=== PATIENT | female | born 1950 | race African-American/Black ===

== ENCOUNTER 2017-12-11 23:00 | Emergency (ER) | payer MEDICARE, OTHER ==
[2017-12-12] MEDS ORDERED: PREDNISONE 20 MG TABLET PO ONE (01:22)
--- NOTE | 2017-12-12 01:27 | ER Document Report ---
ED General - General Chief Complaint: Breathing Difficulty Stated Complaint: DIFFICULTY BREATHING Time Seen by Provider: 12/12/17 01:09 Notes: Patient is a 67 year old female with a past medical history of COPD who presents with 24 hours of shortness of breath. Patient reports that her symptoms have much improved at this time after using her albuterol inhaler in triage. She reports that she has had a dry, nonproductive cough as well as intermittent sensation of choking with coughing. She denies a history of similar exacerbations in the past. She has not seen a primary doctor regarding today's concerns. She denies any fever, headache, neck pain, chest pain or syncope. Multiple sick contacts with viral upper respiratory infections the patient believes that she has the same symptoms. TRAVEL OUTSIDE OF THE [place] IN LAST 30 DAYS: No - Related Data Allergies/Adverse Reactions: No Known Allergies Allergy (Unverified 04/17/11 09:30) Past Medical History - General Information source: Patient - Social History Smoking Status: Former Smoker Chew tobacco use (# tins/day): No Frequency of alcohol use: Occasional Drug Abuse: None Lives with: Family Family History: Reviewed & Not Pertinent Patient has suicidal ideation: No Patient has homicidal ideation: No Renal/ Medical History: Denies: Hx Peritoneal Dialysis Review of Systems - Review of Systems Notes: Constitutional: Negative for fever. HENT: Negative for sore throat. Eyes: Negative for visual changes. Cardiovascular: Negative for chest pain. Respiratory: Positive for shortness of breath. Gastrointestinal: Negative for abdominal pain, vomiting or diarrhea. Genitourinary: Negative for dysuria. Musculoskeletal: Negative for back pain. Skin: Negative for rash. Neurological: Negative for headaches, weakness or numbness. 10 point ROS negative except as marked above and in HPI. Physical Exam - Vital signs Vitals: Temp Pulse Resp BP Pulse Ox 98.1 F 91 22 H 173/72 H 97 12/11/17 23:01 12/11/17 23:01 12/11/17 23:01 12/11/17 23:01 12/11/17 23:01 Interpretation: Hypertensive Notes: PHYSICAL EXAMINATION: GENERAL: Well-appearing, well-nourished and in no acute distress. HEAD: Atraumatic, normocephalic. EYES: Pupils equal round and reactive to light, extraocular movements intact, sclera anicteric, conjunctiva are normal. ENT: nares patent, oropharynx clear without exudates. Moist mucous membranes. NECK: Normal range of motion, supple without lymphadenopathy LUNGS: Breath sounds clear to auscultation bilaterally and equal. No wheezes rales or rhonchi. HEART: Regular rate and rhythm without murmurs ABDOMEN: Soft, nontender, normoactive bowel sounds. No guarding, no rebound. No masses appreciated. EXTREMITIES: Normal range of motion, no pitting or edema. No cyanosis. NEUROLOGICAL: No focal neurological deficits. Moves all extremities spontaneously and on command. PSYCH: Normal mood, normal affect. SKIN: Warm, Dry, normal turgor, no rashes or lesions noted. Course - Re-evaluation Re-evalutation: 12/12/17 01:27 Patient presents with a mild exacerbation of their baseline COPD. Minimal wheezing at time of presentation but vitals do not show significant hypoxemia or tachypnea. No retractions. Patient gave herself her inhaler and had resolution of any wheezing that was noted. Chest x-ray without evidence of an acute pneumonia.Patient able to ambulate without any respiratory distress. Based on patient's overall reassuring assessment, I believe they are stable for outpatient management with steroids. Patient has nebulizers at home. I do not suspect an acute alternative pathology at this time based on history and exam including acute pulmonary embolus, ACS, pneumothorax, or aortic dissection. At this time will discharge with return precautions and follow-up recommendations. Verbal discharge instructions given a the bedside and opportunity for questions given. Medication warnings reviewed. Patient is in agreement with this plan and has verbalized understanding of return precautions and the need for primary care follow-up in the next 24-72 hours. - Vital Signs Vital signs: Temp Pulse Resp BP Pulse Ox 98.1 F 91 22 H 173/72 H 97 12/11/17 23:01 12/11/17 23:01 12/11/17 23:01 12/11/17 23:01 12/11/17 23:01 - Diagnostic Test Radiology reviewed: Image reviewed, Reports reviewed Radiology results interpreted by me: 12/12/17 02:07 Chest x-ray: No acute infiltrate or pneumothorax Discharge - Discharge Clinical Impression: COPD exacerbation Condition: Good Disposition: HOME, SELF-CARE Additional Instructions: You were seen for a COPD exacerbation. Your symptoms improved with treatment here in the emergency department. However, it is very important that you return to the emergency department immediately if you began to have worsening difficulty breathing that does not respond to your normal home nebulizers. You are also being sent home on a five-day course of steroids that you should start taking tomorrow. Please also follow closely with your primary care physician. You should return to emergency department if you develop fever greater than 101, persistent cough, persistent vomiting, pass out, or any other symptoms that are concerning to you. Prescriptions: Prednisone [Deltasone 20 mg Tablet] 3 tab PO DAILY 5 Days tablet Forms: Return to Work
--- NOTE | 2017-12-12 01:45 | RADIOLOGY REPORT (SQ) ---
EXAM DESCRIPTION: CHEST SINGLE VIEW CLINICAL HISTORY: 67 years Female, shortness of breath COMPARISON: 04/17/2011 NUMBER OF VIEWS/TECHNIQUE: 1/AP LIMITATIONS: None. FINDINGS: Moderate emphysematous increased lung volume, clear parenchyma, normal cardiac silhouette, atherosclerosis, and intact bony thorax. IMPRESSION: No acute cardiopulmonary findings.
[2017-12-12 02:26] VITALS: BP 165/70
== END 2017-12-12 02:26 | disposition home or self-care (01) ==
LOC: ER 23:00
DX: J44.1 Chronic obstructive pulmonary disease with (acute) exacerbation (principal)
CPT/HCPCS: 99284; 71045; A9270; J7512

== ENCOUNTER 2018-03-16 01:30 | Observation (INO) | payer MEDICARE, OTHER ==
[2018-03-16] MEDS ORDERED: DILTIAZEM HCL INJ 25 MG/5 ML VIAL IV ONE (02:03)
[2018-03-16] MEDS ORDERED: DILTIAZEM HCL/D5W 125 MG/125 ML RTUINJ IV PRN (02:03)
--- NOTE | 2018-03-16 02:03 | ER Document Report ---
ED General - General Stated Complaint: PALPITATIONS Time Seen by Provider: 03/16/18 02:02 Mode of Arrival: Ambulatory Information source: Patient Notes: 67 yr old female presents with complaints of palpitations. pt notes that she has had palpitations for a while, saw a cardioligst and was supposed ot wear a holter but never did. pt is on labetolol. pt notes for the past day she has had nausea vomiting and diarrhea and her hearts been racing. she called ems earlier but did not come in and now presents with aflutter TRAVEL OUTSIDE OF THE [place] IN LAST 30 DAYS: No - HPI Onset: Just prior to arrival Onset/Duration: Sudden Quality of pain: No pain Severity: Moderate Pain Level: Denies Associated symptoms: Other Exacerbated by: Denies Relieved by: Denies Similar symptoms previously: Yes Recently seen / treated by doctor: Yes - Related Data Allergies/Adverse Reactions: No Known Allergies Allergy (Unverified 04/17/11 09:30) Past Medical History - Social History Smoking Status: Never Smoker Cigarette use (# per day): No Chew tobacco use (# tins/day): No Smoking Education Provided: No Family History: Reviewed & Not Pertinent Renal/ Medical History: Denies: Hx Peritoneal Dialysis Review of Systems - Review of Systems Notes: REVIEW OF SYSTEMS: CONSTITUTIONAL : Denies fever, chills, or sweats. Denies recent illness. EENT: Denies eye, ear, throat, or mouth pain or symptoms. Denies nasal or sinus congestion or discharge. Denies throat, tongue, or mouth swelling or difficulty swallowing. CARDIOVASCULAR: Admits to palpitations RESPIRATORY: Denies cough, cold, or chest congestion. Denies shortness of breath, difficulty breathing, or wheezing. GASTROINTESTINAL: Denies abdominal pain or distention. Denies nausea, vomiting , or diarrhea. Denies blood in vomitus, stools, or per rectum. Denies black, tarry stools. Denies constipation. GENITOURINARY: Denies difficulty urinating, painful urination, burning, frequency, blood in urine, or discharge. FEMALE GENITOURINARY: Denies vaginal bleeding, heavy or abnormal periods, irregular periods. Denies vaginal discharge or odor. MUSCULOSKELETAL: Denies back or neck pain or stiffness. Denies joint pain or swelling. SKIN: Denies rash, lesions or sores. HEMATOLOGIC : Denies easy bruising or bleeding. LYMPHATIC: Denies swollen, enlarged glands. NEUROLOGICAL: Denies confusion or altered mental status. Denies passing out or loss of consciousness. Denies dizziness or lightheadedness. Denies headache. Denies weakness or paralysis or loss of use of either side. Denies problems with gait or speech. Denies sensory loss, numbness, or tingling. Denies seizures. PSYCHIATRIC: Denies anxiety or stress. Denies depression, suicidal ideation, or homicidal ideation. ALL OTHER SYSTEMS REVIEWED AND NEGATIVE. PHYSICAL EXAMINATION: GENERAL: Well-appearing, well-nourished and in no acute distress. HEAD: Atraumatic, normocephalic. EYES: Pupils equal round and reactive to light, extraocular movements intact, conjunctiva are normal. ENT: Nares patent, oropharynx clear without exudates. Moist mucous membranes. NECK: Normal range of motion, supple without lymphadenopathy LUNGS: Breath sounds clear to auscultation bilaterally and equal. No wheezes rales or rhonchi. HEART: irregular rate rhythm ABDOMEN: Soft, nontender, nondistended abdomen. No guarding, no rebound. No masses appreciated. Female : deferred Musculoskeletal: Normal range of motion, no pitting or edema. No cyanosis. NEUROLOGICAL: Cranial nerves grossly intact. Normal speech, normal gait. Normal sensory, motor exams PSYCH: Normal mood, normal affect. SKIN: Warm, Dry, normal turgor, no rashes or lesions noted. Dictation was performed using [employer] voice recognition software Course - Re-evaluation Re-evalutation: 03/16/18 02:11 pt noted ot be in aflutter , cardizem to be started 03/16/18 02:43 pt converted back to sinus before cardizem 03/16/18 04:27 TSH is noted to be slightly elevated, she continues to be in normal sinus rhythm but given the multiple episodes of paroxysmal A. fib and being on the beta-zoltan already I do believe it is appropriate for admission - Laboratory Result Diagrams: 03/16/18 02:45 03/16/18 02:45 Laboratory results interpreted by me: 03/16/18 03/16/18 02:45 02:45 Sodium 147.1 H Chloride 111 H Carbon Dioxide 21 L Glucose 118 H Creatine Kinase 243 H TSH 5.34 H - Diagnostic Test Radiology reviewed: Image reviewed, Reports reviewed - EKG Interpretation by Me EKG shows normal: Sinus rhythm, [place], Intervals Rhythm: A.Flutter Discharge - Discharge Clinical Impression: Paroxysmal A-fib Condition: Stable Disposition: ADMITTED OBSERVATION Admitting Provider: Hospitalist Unit Admitted: [facility] Referrals: STACEY KHANNA DO [Primary Care Provider] - Follow up as needed
--- NOTE | 2018-03-16 02:27 | RADIOLOGY REPORT (SQ) ---
EXAM DESCRIPTION: XR CHEST 1 VIEW COMPLETED DATE/TME: 03/16/2018 01:59 CLINICAL HISTORY: 67 years Female, palpitations COMPARISON: 3.19.18 NUMBER OF VIEWS/TECHNIQUE: 1/AP FINDINGS: Increased lung volume, clear parenchyma, normal cardiac silhouette, atherosclerosis, and intact bony thorax. IMPRESSION: No acute cardiopulmonary findings.
[2018-03-16 02:56] LABS: ABSOLUTE EOSINOPHILS # (AUTO) 0.2 10^3/uL (0.0-0.6); ABSOLUTE LYMPHOCYTES (AUTO) 1.6 10^3/uL (0.5-4.7); ABSOLUTE MONOCYTES (AUTO) 0.5 10^3/uL (0.1-1.4); ABSOLUTE NEUT (AUTO) 4.6 10^3/uL (1.7-8.2); BASOPHILS % (AUTO) 0.6 % (0-2); EOSINOPHILS % (AUTO) 3.3 % (0-6); HEMATOCRIT 39.4 % (36.0-47.0); HEMOGLOBIN 13.1 g/dL (12.0-15.5); LYMPHOCYTES % (AUTO) 23.1 % (13-45); MEAN CORPUSCULAR HEMOGLOBIN 30.7 pg (27.0-33.4); MEAN CORPUSCULAR HGB CONC 33.4 g/dL (32.0-36.0); MEAN CORPUSCULAR VOLUME 92 fl (80-97); MONOCYTES % (AUTO) 7.4 % (3-13); PLATELET COUNT 414 10^3/uL (150-450); RED BLOOD COUNT 4.28 10^6/uL (3.72-5.28); SEGMENTED NEUTROPHILS % (AUTO) 65.6 % (42-78); TOTAL CELLS COUNTED % (AUTO) 100 %
[2018-03-16] MEDS: NORMAL SALINE 1000 ML 1,000 ML IV PRN ×2 (03:07→04:46)
[2018-03-16 03:28] LABS: ALANINE AMINOTRANSFERASE 15 U/L (9-52); ALBUMIN 4.3 g/dL (3.5-5.0); ALKALINE PHOSPHATASE 71 U/L (38-126); ANION GAP 15 (5-19); ASPARTATE AMINO TRANSFERASE 25 U/L (14-36); BILIRUBIN,DIRECT 0.4 mg/dL (0.0-0.4); BILIRUBIN,TOTAL 0.4 mg/dL (0.2-1.3); BLOOD UREA NITROGEN 16 mg/dL (7-20); CALCIUM 10.2 mg/dL (8.4-10.2); CARBON DIOXIDE 21 mmol/L (22-30); CHLORIDE 111 mmol/L (98-107); CREATINE KINASE 243 U/L (30-135); GLUCOSE 118 mg/dL (75-110); POTASSIUM 4.6 mmol/L (3.6-5.0); SODIUM 147.1 mmol/L (137-145); TOTAL PROTEIN 7.7 g/dL (6.3-8.2)
[2018-03-16 03:39] LABS: CREATINE KINASE MB 1.08 ng/mL (<4.55); TROPONIN I < 0.012 ng/mL
[2018-03-16] MEDS ORDERED: ACETAMINOPHEN 325 MG TABLET PO PRN (04:29)
[2018-03-16] MEDS ORDERED: MAG HYDROX/AL HYDROX/SIMETH SUSP 30 ML UDCUP PO PRN (04:29)
[2018-03-16] MEDS ORDERED: IPRATROPIUM BROMIDE 0.02% NEB 0.5 MG/2.5 ML AMPUL NEB ONE ×3 (05:00→11:00)
[2018-03-16] MEDS ORDERED: ENOXAPARIN SODIUM INJ 80 MG/0.8 ML DISP.SYRIN SUBCUT ONE (05:00)
[2018-03-16] MEDS ORDERED: LEVALBUTEROL HCL NEB 1.25 MG/3 ML AMPUL NEB ONE ×3 (05:00→11:00)
[2018-03-16] MEDS ORDERED: METOPROLOL TARTRATE 50 MG TABLET PO SCH (05:00)
--- NOTE | 2018-03-16 05:30 | PDOC H&P ---
History of Present Illness Admission Date/PCP: STAECY KHANNA DO Patient complains of: Palpitations History of Present Illness: YASSINE LOPEZ is a 67 year old female with a past medical history of COPD, depression, hypertension and intermittent palpitations. She was ordered Holter monitoring and labetalol several months ago however not utilized for unclear reasons. She presents today after an episode of palpitations calling EMS after an EKG of normal sinus rhythm she elected to stay home. Palpitations recurred EMS responded and reported atrial fibrillation in the 140s. She was brought to the emergency room for evaluation and placed on IV Cardizem. At the time of examination she is converted to normal sinus rhythm. She denies chest pain nausea vomiting, heat intolerance, excessive caffeine, alcohol or recent change of medications. Patient otherwise feels well. Past Medical History Cardiac Medical History: Reports: Hypertension Pulmonary Medical History: Reports: Chronic Obstructive Pulmonary Disease (COPD) Social History Information Source: Patient Smoking Status: Never Smoker Frequency of Alcohol Use: Rare Hx Recreational Drug Use: No Drugs: None Hx Prescription Drug Abuse: No - Advance Directive Resuscitation Status: Full Code Family History Family History: CAD Parental Family History Reviewed: Yes Children Family History Reviewed: Yes Sibling(s) Family History Reviewed.: Yes Medication/Allergy Home Medications: Prednisone [Deltasone 20 mg Tablet] 3 tab PO DAILY 5 Days tablet 12/12/17 Allergies/Adverse Reactions: No Known Allergies Allergy (Unverified 04/17/11 09:30) Review of Systems Constitutional: PRESENT: as per HPI. ABSENT: chills, fever(s), headache(s), weight gain, weight loss Eyes: ABSENT: visual disturbances Ears: ABSENT: hearing changes Cardiovascular: PRESENT: as per HPI, palpitations. ABSENT: chest pain, dyspnea on exertion, edema, orthropnea Respiratory: ABSENT: cough, hemoptysis Gastrointestinal: ABSENT: abdominal pain, constipation, diarrhea, hematemesis, hematochezia, nausea, vomiting Genitourinary: ABSENT: dysuria, hematuria Musculoskeletal: ABSENT: joint swelling Integumentary: ABSENT: rash, wounds Neurological: ABSENT: abnormal gait, abnormal speech, confusion, dizziness, focal weakness, syncope Psychiatric: ABSENT: anxiety, depression, homidical ideation, suicidal ideation Endocrine: ABSENT: cold intolerance, heat intolerance, polydipsia, polyuria Hematologic/Lymphatic: ABSENT: easy bleeding, easy bruising Physical Exam Vital Signs: Temp Pulse Resp BP Pulse Ox 12 143/77 H 98 03/16/18 04:50 03/16/18 04:50 03/16/18 04:50 Results Laboratory Results: 03/16/18 02:45 03/16/18 02:45 03/16/18 03/16/18 03/16/18 02:45 02:45 02:45 WBC 7.0 RBC 4.28 Hgb 13.1 Hct 39.4 MCV 92 MCH 30.7 MCHC 33.4 RDW 14.0 Plt Count 414 Seg Neutrophils % 65.6 Lymphocytes % 23.1 Monocytes % 7.4 Eosinophils % 3.3 Basophils % 0.6 Absolute Neutrophils 4.6 Absolute Lymphocytes 1.6 Absolute Monocytes 0.5 Absolute Eosinophils 0.2 Absolute Basophils 0.0 Sodium 147.1 H Potassium 4.6 Chloride 111 H Carbon Dioxide 21 L Anion Gap 15 BUN 16 Creatinine 0.79 Est GFR ( Amer) > 60 Est GFR (Non-Af Amer) > 60 Glucose 118 H Calcium 10.2 Magnesium 2.1 Total Bilirubin 0.4 AST 25 ALT 15 Alkaline Phosphatase 71 Total Protein 7.7 Albumin 4.3 TSH 5.34 H 03/16/18 03/16/18 02:45 02:45 Creatine Kinase 243 H CK-MB (CK-2) 1.08 Troponin I < 0.012 Impressions: Chest X-Ray 03/16/18 01:59 IMPRESSION: No acute cardiopulmonary findings. Assessment & Plan - Diagnosis (1) COPD (chronic obstructive pulmonary disease) Is this a current diagnosis for this admission?: Yes Plan: Xopenex and Atrovent (2) Paroxysmal A-fib Is this a current diagnosis for this admission?: Yes Plan: Patient gives a history of intermittent palpitations for years. Noncompliance with labetalol. Labetalol resumed, full dose Lovenox initiated. Follow-up CBC , TSH and 2D echo. - Time Time Spent: 50 to 70 Minutes - Inpatient Certification Medical Necessity: Need Close Monitoring Due to Risk of Patient Decompensation
[2018-03-16 06:18] LABS: URINE AMPHETAMINES SCREEN NEGATIVE; URINE BARBITURATES SCREEN NEGATIVE; URINE BENZODIAZEPINES SCREEN NEGATIVE; URINE COCAINE SCREEN NEGATIVE; URINE MARIJUANA (THC) SCREEN NEGATIVE; URINE METHADONE SCREEN NEGATIVE; URINE PHENCYCLIDINE SCREEN NEGATIVE
--- NOTE | 2018-03-16 09:32 | EKG REPORT ---
SEVERITY:- ABNORMAL ECG - A-FIB : Confirmed by: Vicki Warren 16-Mar-2018 09:32:11
--- NOTE | 2018-03-16 09:32 | EKG REPORT ---
SEVERITY:- NORMAL ECG - SINUS RHYTHM : Confirmed by: Vicki Warren 16-Mar-2018 09:31:49
[2018-03-16] MEDS: LABETALOL HCL 200 MG TABLET PO SCH ×2 (09:35→18:00)
[2018-03-16] MEDS: DILTIAZEM HCL 120 MG CAP.SR.24H PO SCH (09:37)
[2018-03-16] MEDS: APIXABAN 5 MG TABLET PO SCH ×2 (09:37→18:00)
[2018-03-16] MEDS: DOCUSATE SODIUM 100 MG CAPSULE PO SCH ×2 (09:37→17:57)
--- NOTE | 2018-03-16 11:03 | PDOC CONSULTATION ---
Consultation Consult Date: 03/16/18 Attending physician:: GRISELDA PANDA Consult reason:: Atrial fibrillation History of Present Illness Admission Date/PCP: 03/16/18 04:54 STACEY DEARDO Patient complains of: Palpitations History of Present Illness: YASSINE LOPEZ is a 67 year old female with a past medical history of COPD, depression, hypertension and intermittent palpitations. She was ordered Holter monitoring and labetalol several months ago however not utilized for unclear reasons. She presents today after an episode of palpitations calling EMS after an EKG of normal sinus rhythm she elected to stay home. Palpitations recurred EMS responded and reported atrial fibrillation in the 140s. She was brought to the emergency room for evaluation and placed on IV Cardizem. At the time of examination she is converted to normal sinus rhythm. She denies chest pain nausea vomiting, heat intolerance, excessive caffeine, alcohol or recent change of medications. Patient otherwise feels well. Patient denied any chest pain. She describes a history of heart murmur and questionable history of CHF. Patient claims that she feels fine now and would like to be discharged if at all possible. Past Medical History Cardiac Medical History: Reports: Hypertension Pulmonary Medical History: Reports: Chronic Obstructive Pulmonary Disease (COPD) Social History Information Source: Patient Smoking Status: Former Smoker Cigarettes Packs Per Day: 1 Last Time Smoked: 2005 Frequency of Alcohol Use: Rare Hx Recreational Drug Use: No Drugs: None Hx Prescription Drug Abuse: No - Advance Directive Resuscitation Status: Full Code Surrogate healthcare decision maker:: Patient's son is the surrogate decision-maker Family History Family History: CAD Parental Family History Reviewed: Yes Children Family History Reviewed: Yes Sibling(s) Family History Reviewed.: Yes Medication/Allergy Home Medications: Albuterol Sulfate [Proair HFA] 2 puff IH Q6HP PRN 03/16/18 Ascorbic Acid [Vitamin C] 500 mg PO DAILY 03/16/18 Aspirin [Aspirin EC] 81 mg PO DAILY 03/16/18 Calcium Carbonate/Vitamin D3 [Calcium 500-Vit D3 200 Tablet] 1 each PO DAILY Citalopram Hydrobromide [Celexa 40 mg Tablet] 1 tab PO DAILY 03/16/18 Labetalol HCl 100 mg PO Q12 03/16/18 Lisinopril [Prinivil 40 mg Tablet] 40 mg PO DAILY 03/16/18 Multivitamin [Multiple Vitamins] 1 each PO DAILY 03/16/18 Tiotropium [place] [Spiriva Handihaler 18 mcg/dose (30 Dose)] 1 cap IH DAILY Allergies/Adverse Reactions: No Known Allergies Allergy (Unverified 03/16/18 09:35) Review of Systems Review of Systems: Please see history of present illness and past medical history as wall. Constitutional: No fever or chills reported. Head : No recent chronic headaches, recent head injury. Eyes: No recent eye pain, diplopia, redness, discharge, acute visual changes. Ears: No recent chronic ear pain, acute hearing loss, ear discharge. Oral cavity: No recent ulcerations, bleeding, oral cavity discomfort. Neck: No recent acute neck pain reported. Hematologic: No recent easy bruising or bleeding. Lymphatic: No recent lymph node enlargement reported. Cardiovascular system review: See history of present illness. Respiratory system review: No hemoptysis or blood clots in the lungs reported. Mild Shortness of breath on exertion. Gives history of COPD Gastrointestinal system review: Negative for any recent acute hematemesis, melena. Genitourinary system review: No recent acute or chronic hematuria, flank pain, UTI etc. reported. Skin system review: Negative for any recent abnormal bruising, no rash, no pruritus reported. Neurologic: No prior history of strokes, mini strokes, seizure disorder. Patient gives history of difficulty falling asleep and staying asleep and also multiple nocturnal awakening. Psychologic: No history of major psychosis or major depression reported. Musculoskeletal: Minor aches and pains reported. No acute joint swelling reported. Endocrine: No recent polyuria, polydipsia, recent heat or cold intolerance. Physical Exam Vital Signs: Temp Pulse Resp BP Pulse Ox 97.7 F 59 L 12 145/71 H 99 03/16/18 07:55 03/16/18 07:55 03/16/18 07:55 03/16/18 07:55 03/16/18 07:55 Intake & Output 03/15/18 03/16/18 03/17/18 06:59 06:59 06:59 Weight 71.4 kg Exam: GENERAL: well-nourished and in no acute distress. Alert and oriented x3 HEAD: Atraumatic, normocephalic. EYES: Pupils equal round and reactive to light, extraocular movements intact, sclera anicteric, conjunctiva are normal. ENT: TMs normal, nares patent, oropharynx clear without exudates. Moist mucous membranes. No oral ulcerations or bleeding gums noted NECK: supple without lymphadenopathy. Trachea is central. No cervical or axillary lymphadenopathy noted. Carotids are 2+, JVD WNL LUNGS: Respiration seems nonlabored, no significant accessory muscle action noted. Breath sounds clear to auscultation bilaterally and equal noted. No wheezes rales or rhonchi noted. No significant dullness noted on percussion. CHEST: Palpation of the chest wall shows no significant chest wall tenderness. 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 ABDOMEN: Soft, no significant tenderness appreciated, normoactive bowel sounds. No guarding, no rebound. No rigidity noted . No masses appreciated. EXTREMITIES: Pedal pulses are 1-2+, no calf tenderness noted. No clubbing or cyanosis. negative pedal edema noted NEUROLOGICAL: Focused neurological exam showed no significant neurologic deficit. Normal speech, no focal weakness appreciated. PSYCH: Normal mood, normal affect. Judgment and insight within normal limits. SKIN: No significant ecchymosis, skin is noted to be warm. MUSCULOSKELETAL EXAM: No significant acute joint swelling noted. Results EKG Comments: Initial EKG shows atrial fibrillation with rapid ventricular response. Subsequent EKG shows sinus rhythm. No acute ST-T wave changes are noted. Impressions: Chest X-Ray 03/16/18 01:59 IMPRESSION: No acute cardiopulmonary findings. Assessment & Plan - Diagnosis (1) Paroxysmal A-fib Is this a current diagnosis for this admission?: Yes (2) Hypertension Qualifiers: Hypertension type: essential hypertension Qualified Code(s): I10 - Essential (primary) hypertension Is this a current diagnosis for this admission?: Yes (3) COPD (chronic obstructive pulmonary disease) Qualifiers: COPD type: unspecified COPD Qualified Code(s): J44.9 - Chronic obstructive pulmonary disease, unspecified Is this a current diagnosis for this admission?: Yes (4) Sleep disorder Is this a current diagnosis for this admission?: Yes - Notes Notes: Paroxysmal atrial fibrillation: At this point continue Cardizem, continue labetalol at current dose. Continue Eliquis therapy. Patient maintaining sinus rhythm. May consider antiarrhythmic therapy but will be considered after echocardiogram etc. are done. Patient however wishes to be discharged. Feel that patient can be discharged with a cardiac event monitor that can be arranged through my office. Hypertension: Currently reasonably well controlled. Blood pressure goal should be 135/85 or less. COPD: Currently stable. May try to avoid excess beta-2 stimulation. Sleep disorder: Patient gives history of multiple nocturnal awakening, difficulty falling asleep and staying asleep. Because of comorbid diagnosis of paroxysmal atrial fibrillation and hypertension, patient will benefit from a sleep study. This can be scheduled through my office - Time Time Spent: 30 to 50 Minutes - CODE STATUS was discussed, patient remains full code. Surrogate decision-maker patient's son. Multiple medical problems were addressed. More than 50% of the time spent coordinating care, discussing management plans with involved caregivers. Management plans discussed with involved personnels. Medical decision making was of moderate to high complexity , patient's has multiple comorbidities. Medications reviewed and adjusted accordingly: Yes
[2018-03-16 11:16] LABS: CREATINE KINASE MB 1.06 ng/mL (<4.55)
[2018-03-16 11:20] LABS: TROPONIN I < 0.012 ng/mL
[2018-03-16] MEDS ORDERED: LEVALBUTEROL HCL NEB 1.25 MG/3 ML AMPUL NEB PRN (11:27)
[2018-03-16] MEDS ORDERED: IPRATROPIUM BROMIDE 0.02% NEB 0.5 MG/2.5 ML AMPUL NEB PRN (11:27)
[2018-03-16] MEDS ORDERED: IPRATROPIUM BROMIDE 0.02% NEB 0.5 MG/2.5 ML AMPUL NEB SCH (12:00)
[2018-03-16] MEDS ORDERED: LEVALBUTEROL HCL NEB 1.25 MG/3 ML AMPUL NEB SCH (12:00)
--- NOTE | 2018-03-16 14:00 | Progress Note ---
Provider Note Provider Note: This is 67 years old black female patient presented with palpitation and patient also underlying depression and COPD. Patient found to have atrial fibrillation she has been started on Cardizem drip and currently she reverted to sinus rhythm. Patient has been started on Lovenox and today I switched her to Eliquis. She is potential discharge if she will tolerate the Eliquis without bleeding complication.
[2018-03-16 15:50] LABS: CREATINE KINASE MB 0.91 ng/mL (<4.55)
[2018-03-16 15:53] LABS: TROPONIN I < 0.012 ng/mL
--- NOTE | 2018-03-16 20:11 | XCELERA REPORT ---
[address] [address] Transthoracic Echocardiogram Report Name: YASSINE LOPEZ Age: 67 yrs Gender: Female : 1950 Patient Status: Inpatient Patient Location: [address] [place], [place] [address]A Study Date: 03/16/2018 02:12 PM Procedure: A complete two-dimensional transthoracic echocardiogram was performed (2D, M-mode, spectral and color flow Doppler). The study was technically adequate with some images being suboptimal in quality. Reason For Study: new afib Ordering Physician: GRISELDA PANDA Performed By: Ana Maria Chow Interpretation Summary The left ventricular ejection fraction is normal. There is borderline concentric left ventricular hypertrophy. The left ventricle is grossly normal size. Doppler measurements suggest pseudonormalized left ventricular relaxation, which is associated with grade II/IV or mild to moderate diastolic dysfunction No regional wall motion abnormalities noted. The right ventricle is grossly normal size. The right ventricular systolic function is normal. The right atrium is normal in size The left atrium is mildly dilated. 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 There is mild mitral annular calcification. There is no aortic valve stenosis No aortic regurgitation is present. There is a trace to mild amount of tricuspid regurgitation There is mild pulmonary hypertension by echo Best estimated RVSP is approximately 40 mm/Hg. The aortic root is not well visualized but is probably normal size. The inferior vena cava appeared normal and decreased > 50% with respiration (RAP 5-10 mmHg) Minimal pericardial effusion. MMode/2D Measurements & Calculations RVDd: 3.0 cm LVIDd: 4.9 cm FS: 14.9 % Ao root diam: IVSd: 1.1 cm LVIDs: 4.1 cm EDV(Teich): 2.5 cm LVPWd: 1.1 cm 110.3 ml Ao root area: ESV(Teich): 5.1 cm2 75.6 ml EF(Teich): 31.5 % LVOT diam: EDV(MOD-sp4): SV(MOD-sp4): 1.6 cm 47.1 ml 21.3 ml LVOT area: ESV(MOD-sp4): 2.1 cm2 25.9 ml EF(MOD-sp4): 45.1 % Doppler Measurements & Calculations MV E max korin: MV dec slope: Ao V2 max: LV V1 max P.7 cm/sec 466.8 cm/sec2 151.6 cm/sec 3.6 mmHg MV A max korin: MV dec time: Ao max PG: LV V1 max: 107.4 cm/sec 0.43 sec 9.2 mmHg 94.9 cm/sec MV E/A: 1.9 RAMÍREZ(V,D): 1.3 cm2 PA V2 max: PI max korin: TR max korin: 73.7 cm/sec 188.6 cm/sec 253.2 cm/sec PA max P.2 mmHgPI max P.2 mmHg TR max PG: PI dec slope: 26.5 mmHg 326.7 cm/sec2 Left Ventricle The left ventricle is grossly normal size. There is borderline concentric left ventricular hypertrophy. The left ventricular ejection fraction is normal. Doppler measurements suggest pseudonormalized left ventricular relaxation, which is associated with grade II/IV or mild to moderate diastolic dysfunction. No regional wall motion abnormalities noted. Right Ventricle The right ventricle is grossly normal size. There is normal right ventricular wall thickness. The right ventricular systolic function is normal. Atria The right atrium is normal in size. The left atrium is mildly dilated. Interarterial septum not well visualized and not well dopplered. Cannot comment on ASD/PFO presence. Mitral Valve There is mild to moderate mitral leaflet calcification. There is mild mitral annular calcification. There is mild to moderate mitral stenosis. suggestive of rheumatic involvement, Valve area by PHT 1.8 cmsq. There is a mild to moderate amount of mitral regurgitation. Aortic Valve The aortic valve is grossly normal. There is no aortic valve stenosis. No aortic regurgitation is present. Tricuspid Valve The tricuspid valve is not well visualized, but is grossly normal. There is no tricuspid stenosis. There is a trace to mild amount of tricuspid regurgitation. There is mild pulmonary hypertension by echo. Best estimated RVSP is approximately 40 mm/Hg. Pulmonic Valve The pulmonic valve is not well visualized. Great Vessels The aortic root is not well visualized but is probably normal size. The inferior vena cava appeared normal and decreased > 50% with respiration (RAP 5-10 mmHg). Effusions Minimal pericardial effusion. : GRISELDA PANDA > Vicki Warren
[2018-03-16 21:35] LABS: CREATINE KINASE MB 0.86 ng/mL (<4.55)
[2018-03-16 21:37] LABS: TROPONIN I < 0.012 ng/mL
[2018-03-16] MEDS ORDERED: ENOXAPARIN SODIUM INJ 80 MG/0.8 ML DISP.SYRIN SUBCUT SCH (22:00)
--- NOTE | 2018-03-16 22:50 | EKG REPORT ---
SEVERITY:- NORMAL ECG - SINUS RHYTHM : Confirmed by: Vicki Warren 16-Mar-2018 22:49:43
[2018-03-17 05:16] LABS: HEMATOCRIT 35.4 % (36.0-47.0); MEAN CORPUSCULAR HEMOGLOBIN 31.3 pg (27.0-33.4); MEAN CORPUSCULAR VOLUME 92 fl (80-97); PLATELET COUNT 347 10^3/uL (150-450); RED BLOOD COUNT 3.85 10^6/uL (3.72-5.28); RED CELL DISTRIBUTION WIDTH 13.7 % (11.5-14.0); WHITE BLOOD COUNT 4.7 10^3/uL (4.0-10.5)
[2018-03-17 05:38] LABS: ANION GAP 10 (5-19); BLOOD UREA NITROGEN 12 mg/dL (7-20); CALCIUM 9.6 mg/dL (8.4-10.2); CARBON DIOXIDE 26 mmol/L (22-30); CHLORIDE 110 mmol/L (98-107); GLUCOSE 95 mg/dL (75-110); POTASSIUM 3.9 mmol/L (3.6-5.0); SODIUM 145.9 mmol/L (137-145)
[2018-03-17] MEDS ORDERED: IPRATROPIUM BROMIDE 0.02% NEB 0.5 MG/2.5 ML AMPUL NEB SCH (08:00)
[2018-03-17] MEDS ORDERED: LEVALBUTEROL HCL NEB 1.25 MG/3 ML AMPUL NEB SCH (08:00)
--- NOTE | 2018-03-17 08:54 | PDOC DISCHARGE SUMMARY ---
General - Admit/Disc Date/PCP Admission Date/Primary Care Provider: 03/16/18 04:54 Discharge Date: 03/17/18 - Additional Information Resuscitation Status: Full Code Discharge Diet: As Tolerated Discharge Activity: Activity As Tolerated Prescriptions: Apixaban [Eliquis 5 mg Tablet] 5 mg PO BID #60 tablet Diltiazem HCl [Cardizem 30 mg Tablet] 1 tab PO DAILY #30 tab Home Medications: Albuterol Sulfate [Proair HFA] 2 puff IH Q6HP PRN 03/16/18 Ascorbic Acid [Vitamin C] 500 mg PO DAILY 03/16/18 Aspirin [Aspirin EC] 81 mg PO DAILY 03/16/18 Calcium Carbonate/Vitamin D3 [Calcium 500-Vit D3 200 Tablet] 1 each PO DAILY Citalopram Hydrobromide [Celexa 40 mg Tablet] 1 tab PO DAILY 03/16/18 Labetalol HCl 100 mg PO Q12 03/16/18 Lisinopril [Prinivil 40 mg Tablet] 40 mg PO DAILY 03/16/18 Multivitamin [Multiple Vitamins] 1 each PO DAILY 03/16/18 Tiotropium Mitchell [Spiriva Handihaler 18 mcg/dose (30 Dose)] 1 cap IH DAILY Apixaban [Eliquis 5 mg Tablet] 5 mg PO BID #60 tablet 03/17/18 Diltiazem HCl [Cardizem 30 mg Tablet] 1 tab PO DAILY #30 tab 03/17/18 History of Present Illness History of Present Illness: YASSINE LOPEZ is a 67 year old female with a past medical history of COPD, depression, hypertension and intermittent palpitations. She was ordered Holter monitoring and labetalol several months ago however not utilized for unclear reasons. She presents today after an episode of palpitations calling EMS after an EKG of normal sinus rhythm she elected to stay home. Palpitations recurred EMS responded and reported atrial fibrillation in the 140s. She was brought to the emergency room for evaluation and placed on IV Cardizem. At the time of examination she is converted to normal sinus rhythm. She denies chest pain nausea vomiting, heat intolerance, excessive caffeine, alcohol or recent change of medications. Patient otherwise feels well. Hospital Course Hospital Course: This is a 67 years old black female patient admitted with paroxysmal A. fib with RVR. Patient has been managed with her home medication labetalol 100 mg twice daily and yesterday added for her Cardizem ER 120 mg p.o. daily. This morning patient runs heart rates below 60. I changed her Cardizem from 120 ER p.o. daily to 30 mg p.o. daily and continue her labetalol as it is. I switched her also from Lovenox to Eliquis 5 mg twice a day p.o. this morning I seen and examined the patient admits that she is awake alert and I found her propped up in bed enjoying her breakfast. She does not have new acute complaints. Her vital signs are stable her labs are also within normal limits and patient is good to go home. Follow-up with Dr. Warren as outpatient and will set up primary care physician for her. Physical Exam Vital Signs: Temp Pulse Resp BP Pulse Ox 97.7 F 57 L 18 161/76 H 96 03/17/18 07:17 03/17/18 07:17 03/17/18 07:17 03/17/18 07:17 03/17/18 07:17 Intake & Output 03/16/18 03/17/18 03/18/18 06:59 06:59 06:59 Intake Total 961 Output Total 1200 Balance -239 Weight 71.4 kg 69.9 kg General appearance: PRESENT: no acute distress, well-developed, well-nourished Head exam: PRESENT: atraumatic, normocephalic Eye exam: PRESENT: conjunctiva pink, EOMI, PERRLA. ABSENT: scleral icterus Neck exam: ABSENT: carotid bruit, JVD, lymphadenopathy, thyromegaly Respiratory exam: PRESENT: clear to auscultation lindsey. ABSENT: rales, rhonchi, wheezes Cardiovascular exam: PRESENT: RRR. ABSENT: diastolic murmur, rubs, systolic murmur GI/Abdominal exam: PRESENT: normal bowel sounds, soft. ABSENT: distended, guarding, mass, organolmegaly, rebound, tenderness Extremities exam: PRESENT: full ROM. ABSENT: calf tenderness, clubbing, pedal edema Neurological exam: PRESENT: alert, altered, oriented to time, oriented to situation Psychiatric exam: PRESENT: normal mood Results Laboratory Results: 03/17/18 04:39 03/17/18 04:39 03/17/18 03/17/18 04:39 04:39 WBC 4.7 RBC 3.85 Hgb 12.0 Hct 35.4 L MCV 92 MCH 31.3 MCHC 34.0 RDW 13.7 Plt Count 347 Sodium 145.9 H Potassium 3.9 Chloride 110 H Carbon Dioxide 26 Anion Gap 10 BUN 12 Creatinine 0.74 Est GFR ( Amer) > 60 Est GFR (Non-Af Amer) > 60 Glucose 95 Calcium 9.6 03/16/18 03/16/18 03/16/18 10:00 10:00 14:52 Creatine Kinase 201 H 158 H CK-MB (CK-2) 1.06 Troponin I < 0.012 03/16/18 03/16/18 03/16/18 14:52 20:50 20:50 Creatine Kinase 190 H CK-MB (CK-2) 0.91 0.86 Troponin I < 0.012 < 0.012 Impressions: Chest X-Ray 03/16/18 01:59 IMPRESSION: No acute cardiopulmonary findings. Qualifiers - * PATIENT BEING DISCHARGED WITH ANY OF THE FOLLOWING DIAGNOSIS: No
[2018-03-17] MEDS: DILTIAZEM HCL 120 MG CAP.SR.24H PO SCH (09:09)
[2018-03-17] MEDS: APIXABAN 5 MG TABLET PO SCH (09:10)
[2018-03-17] MEDS: LABETALOL HCL 200 MG TABLET PO SCH (09:10)
[2018-03-17] MEDS: DOCUSATE SODIUM 100 MG CAPSULE PO SCH (09:11)
[2018-03-17 10:35] VITALS: BP 145/70
== END 2018-03-17 11:06 | disposition home or self-care (01) ==
LOC: ER 01:30 → EH 04:54 → OBSVTOIN 04:54 → INTOOBSV 04:54 → 3N 06:36
PROVIDERS: ADMIT Internal Medicine; ATTEND Internal Medicine
DX: I48.0 Paroxysmal atrial fibrillation (principal); I10 Essential (primary) hypertension; J44.9 Chronic obstructive pulmonary disease, unspecified; F32.9 Major depressive disorder, single episode, unspecified; I05.2 Rheumatic mitral stenosis with insufficiency; R11.2 Nausea with vomiting, unspecified; R19.7 Diarrhea, unspecified; I48.92 Unspecified atrial flutter; G47.00 Insomnia, unspecified; Z79.899 Other long term (current) drug therapy; Z79.82 Long term (current) use of aspirin; Z87.891 Personal history of nicotine dependence; Z82.49 Family history of ischemic heart disease and other diseases of the circulatory system; Z91.14 Patient's other noncompliance with medication regimen
CPT/HCPCS: 93005 ×2; 94640 ×3; 99285; 96372; 96360; 96361; 36415 ×2; 82553; 82550; 83735; 84443; 85025; 85027; 80048; 80053; 84484; 80307; 83880; 93306; 71045; 93010; G0378 ×2; A9270 ×7; J7030; J1650; J3490 ×2

== ENCOUNTER 2019-10-07 23:20 | Emergency (ER) | payer MEDICARE, OTHER ==
--- NOTE | 2019-10-07 23:47 | ER Document Report ---
ED Medical Screen (RME) - General Chief Complaint: CHF Exacerbation Stated Complaint: SWOLLEN ANKLES Time Seen by Provider: 10/07/19 23:40 Notes: Patient is a 69-year-old female who presents to the emergency department with a chief complaint of bilateral lower leg swelling. She notes that this morning. Patient has a history of atrial fibrillation. She was brought in by EMS and her heart rate was between 120s and 150s. Patient did feel short of breath earlier today and took 2 puffs of her albuterol inhaler. Exam: Irregularly irregular heart sounds. Diminished breath sounds throughout. I have greeted and performed a rapid initial assessment of this patient. A comprehensive ED assessment and evaluation of the patient, analysis of test results and completion of medical decision making process will be conducted by an additional ED providers. TRAVEL OUTSIDE OF THE [place] IN LAST 30 DAYS: No - Related Data Allergies/Adverse Reactions: No Known Allergies Allergy (Unverified 03/16/18 09:35) Past Medical History - Past Medical History Cardiac Medical History: Reports: Hx Hypertension Pulmonary Medical History: Reports: Hx COPD Renal/ Medical History: Denies: Hx Peritoneal Dialysis Physical Exam - Vital signs Vitals: Temp Pulse Resp BP Pulse Ox 98.6 F 125 H 22 H 133/83 H 97 10/07/19 23:36 10/07/19 23:36 10/07/19 23:36 10/07/19 23:36 10/07/19 23:36 Course - Vital Signs Vital signs: Temp Pulse Resp BP Pulse Ox 98.6 F 125 H 22 H 133/83 H 97 10/07/19 23:36 10/07/19 23:36 10/07/19 23:36 10/07/19 23:36 10/07/19 23:36
--- NOTE | 2019-10-08 00:17 | EKG REPORT ---
SEVERITY:- ABNORMAL ECG - ATRIAL FIBRILLATION, V-RATE 103-158 LOW VOLTAGE IN FRONTAL LEADS BORDERLINE PROLONGED QT INTERVAL : Confirmed by: Vicki Warren 08-Oct-2019 00:16:42
[2019-10-08 00:32] LABS: VENOUS BLOOD BASE EXCESS -2.1 mmol/L; VENOUS BLOOD HCO3 21.3 mmol/L (20-32); VENOUS BLOOD PH 7.44 (7.30-7.42)
[2019-10-08 00:37] LABS: ABSOLUTE BASOPHILS # (AUTO) 0.1 10^3/uL (0.0-0.2); ABSOLUTE EOSINOPHILS # (AUTO) 0.3 10^3/uL (0.0-0.6); ABSOLUTE LYMPHOCYTES (AUTO) 1.3 10^3/uL (0.5-4.7); ABSOLUTE MONOCYTES (AUTO) 0.5 10^3/uL (0.1-1.4); BASOPHILS % (AUTO) 0.9 % (0-2); EOSINOPHILS % (AUTO) 3.9 % (0-6); HEMATOCRIT 33.5 % (36.0-47.0); HEMOGLOBIN 11.3 g/dL (12.0-15.5); LYMPHOCYTES % (AUTO) 17.9 % (13-45); MEAN CORPUSCULAR HEMOGLOBIN 31.2 pg (27.0-33.4); MEAN CORPUSCULAR HGB CONC 33.6 g/dL (32.0-36.0); MEAN CORPUSCULAR VOLUME 93 fl (80-97); PLATELET COUNT 396 10^3/uL (150-450); RED BLOOD COUNT 3.61 10^6/uL (3.72-5.28); RED CELL DISTRIBUTION WIDTH 14.6 % (11.5-14.0); SEGMENTED NEUTROPHILS % (AUTO) 70.3 % (42-78); TOTAL CELLS COUNTED % (AUTO) 100 %; WHITE BLOOD COUNT 7.1 10^3/uL (4.0-10.5)
[2019-10-08 00:50] LABS: ALBUMIN 3.8 g/dL (3.5-5.0); ALKALINE PHOSPHATASE 70 U/L (38-126); ANION GAP 11 (5-19); ASPARTATE AMINO TRANSFERASE 44 U/L (14-36); BILIRUBIN,DIRECT 0.2 mg/dL (0.0-0.4); BILIRUBIN,TOTAL 0.6 mg/dL (0.2-1.3); BLOOD UREA NITROGEN 17 mg/dL (7-20); CALCIUM 9.1 mg/dL (8.4-10.2); CARBON DIOXIDE 21 mmol/L (22-30); CHLORIDE 109 mmol/L (98-107); CREATINE KINASE 152 U/L (30-135); GLUCOSE 116 mg/dL (75-110); POTASSIUM 3.9 mmol/L (3.6-5.0); TOTAL PROTEIN 7.1 g/dL (6.3-8.2)
--- NOTE | 2019-10-08 01:04 | RADIOLOGY REPORT (SQ) ---
EXAM DESCRIPTION: XR CHEST 1 VIEW COMPLETED DATE/TME: 10/07/2019 23:44 CLINICAL HISTORY: 69 years, Female, cough COMPARISON: None. NUMBER OF VIEWS: 1 TECHNIQUE: Portable chest LIMITATIONS: None. FINDINGS: Cardiomegaly. Atheromatous change thoracic aorta. Osteopenia. Coarsened interstitial changes in the lung bases may reflect mild interstitial edema or pneumonitis. COPD. No pneumothorax IMPRESSION: Mild bibasilar interstitial edema and/or pneumonitis. Underlying COPD. copyright 2010 [employer]- All Rights Reserved
[2019-10-08] MEDS ORDERED: DILTIAZEM HCL INJ 25 MG/5 ML VIAL IV ONE (02:39)
--- NOTE | 2019-10-08 02:41 | ER Document Report ---
ED Cardiac - General Chief Complaint: CHF Exacerbation Stated Complaint: SWOLLEN ANKLES Time Seen by Provider: 10/07/19 23:40 Mode of Arrival: Medic Information source: Patient Notes: For the past several days patient has noted that her atrial fibrillation is out of control with a rapid rate. [place] She was found out then that she was in atrial fibrillation and she was given medicine to have rate control before she left. Patient again today had rapid atrial fibrillation palpitations and shortness of breath particularly with exertion such as walking. Tonight patient came into the emergency department by paramedics for assistance with her tachycardia and her shortness of breath. Patient is not aware of any coronary artery disease. TRAVEL OUTSIDE OF THE [place] IN LAST 30 DAYS: No - HPI Patient complains to provider of: Palpitations, Shortness of breath - Related Data Allergies/Adverse Reactions: No Known Allergies Allergy (Unverified 03/16/18 09:35) Past Medical History - Social History Smoking Status: Never Smoker Lives with: Family Family History: Reviewed & Not Pertinent, CAD Patient has suicidal ideation: No Patient has homicidal ideation: No - Past Medical History Cardiac Medical History: Reports: Hx Hypertension Pulmonary Medical History: Reports: Hx COPD Renal/ Medical History: Denies: Hx Peritoneal Dialysis Review of Systems - Review of Systems Cardiovascular: See HPI, Palpitations, Dyspnea Respiratory: See HPI, Other - Shortness of breath Physical Exam - Vital signs Vitals: Temp Pulse Resp BP Pulse Ox 98.6 F 125 H 22 H 133/83 H 97 10/07/19 23:36 10/07/19 23:36 10/07/19 23:36 10/07/19 23:36 10/07/19 23:36 Interpretation: Normal - General General appearance: Appears well, Alert - HEENT Head: Normocephalic, Atraumatic Eyes: Normal Pupils: PERRL - Respiratory Respiratory status: No respiratory distress Chest status: Nontender Breath sounds: Normal Chest palpation: Normal - Cardiovascular Rhythm: Regular, Irregularly irregular, Tachycardia Heart sounds: Normal auscultation Murmur: No Systolic murmur grade 1-6: 2 Normal capillary refill: Yes - Abdominal Inspection: Normal Distension: No distension Bowel sounds: Normal Tenderness: Nontender Organomegaly: No organomegaly - Back Back: Normal, Nontender - Extremities General upper extremity: Normal inspection, Nontender, Normal color, Normal ROM, Normal temperature General lower extremity: Normal inspection, Nontender, Normal color, Normal ROM, Normal temperature, Normal weight bearing. No: Tee's sign - Neurological Neuro grossly intact: Yes Cognition: Normal Orientation: AAOx4 [place] Coma Scale Eye Opening: Spontaneous [place] Coma Scale Verbal: Oriented [place] Coma Scale Motor: Obeys Commands [place] Coma Scale Total: 15 Speech: Normal Motor strength normal: LUE, RUE, LLE, RLE Sensory: Normal - Psychological Associated symptoms: Normal affect, Normal mood - Skin Skin Temperature: Warm Skin Moisture: Dry Skin Color: Normal Course - Re-evaluation Re-evalutation: 10/08/19 05:12 Patient is resting comfortably showing no signs of distress at this time patient has diuresed from IV Lasix therapy. Patient admits that that this time she does not have shortness of breath when she walks. - Vital Signs Vital signs: Temp Pulse Resp BP Pulse Ox 97.8 F 125 H 25 H 133/96 H 96 10/08/19 02:35 10/07/19 23:36 10/08/19 02:35 10/08/19 02:35 10/08/19 02:35 - Laboratory Result Diagrams: 10/08/19 00:20 10/08/19 00:20 Laboratory results interpreted by me: 10/08/19 10/08/19 10/08/19 00:20 00:20 00:20 RBC 3.61 L Hgb 11.3 L Hct 33.5 L RDW 14.6 H VBG pH VBG pCO2 Chloride 109 H Carbon Dioxide 21 L Glucose 116 H AST 44 H Creatine Kinase 152 H NT-Pro-B Natriuret Pep 1330 H 10/08/19 00:20 RBC Hgb Hct RDW VBG pH 7.44 H VBG pCO2 32.0 L Chloride Carbon Dioxide Glucose AST Creatine Kinase NT-Pro-B Natriuret Pep - Diagnostic Test Radiology reviewed: Image reviewed, Reports reviewed - EKG Interpretation by Me Additional EKG results interpreted by me: 10/08/19 05:16 twelve-lead EKG time 1122 shows atrial fibrillation with a rate of 127 with a variable accelerated ventricular rate of 10 3-1 58. Low voltage in frontal leads. Borderline prolonged QT interval. Discharge - Discharge Clinical Impression: Atrial fibrillation with rapid ventricular response CHF (congestive heart failure) Qualifiers: Heart failure chronicity: acute Condition: Stable Disposition: HOME, SELF-CARE Additional Instructions: Congestive Heart Failure You have been diagnosed as having congestive heart failure (CHF). CHF occurs when the heart is unable to pump blood efficiently, leading to fluid buildup in the veins and lungs. Typical symptoms are swelling of the legs, shortness of breath on minor exertion, and fatigue. CHF is treated with salt restriction, medicine to eliminate excess water and salt from the body, and medication to help the heart contract more efficiently. Eliminate added salt and salty foods in your diet. Decrease your activity until excess fluid has been eliminated. It will also be helpful to raise the head of your bed so you can sleep more easily. Keep a daily record of your weight. This will help your physician monitor your progress. Once extra water has been eliminated, light aerobic exercise daily -- such as walking -- will be helpful (unless your physician has told you to restrict activity for other reasons). Be sure to follow up with the physician as instructed. Contact the doctor at once if you worsen in any way.Atrial Fibrillation Atrial fibrillation is an abnormal heart rhythm, caused by irregular electrical circuits in the upper heart chamber. It can be caused by heart valve disease, hardening of the arteries, or metabolic problems such as thyroid disease, or may occur without a clear cause. Atrial fibrillation may occur only occasionally, or may be chronic. Atrial fibrillation often results in a very fast heart rate, with palpitations, lightheadedness, and shortness of breath. Treatment is to slow the abnormally fast rate, and to convert the rhythm back to normal, if possible. Many patients stay in atrial fibrillation for years without symptoms or complic ations. Your doctor will decide whether you can be converted back to a normal heart rhythm. Contact the doctor or emergency medical system at once if you develop chest pain, shortness of breath, or severe lightheadedness, or if you develop any disturbance of consciousness, problems with speech, or localized weakness. Prescriptions: Furosemide [Lasix 20 mg Tablet] 20 mg PO QAM PRN #30 tablet PRN Reason: ANKLE SWELLING Forms: Return to Work
[2019-10-08] MEDS ORDERED: FUROSEMIDE INJ/PF 40 MG/4 ML SDV IV ONE (03:19)
[2019-10-08 05:56] VITALS: BP 138/83
--- NOTE | 2019-10-08 08:04 | EKG REPORT ---
SEVERITY:- ABNORMAL ECG - ATRIAL FIBRILLATION VENTRICULAR PREMATURE COMPLEX NONSPECIFIC T ABNORMALITIES, DIFFUSE LEADS : Confirmed by: Vicki Warren 08-Oct-2019 08:03:22
== END 2019-10-08 05:58 | disposition home or self-care (01) ==
LOC: ER 23:20
DX: I48.91 Unspecified atrial fibrillation (principal); I50.9 Heart failure, unspecified; I11.0 Hypertensive heart disease with heart failure; J44.9 Chronic obstructive pulmonary disease, unspecified; R06.02 Shortness of breath
CPT/HCPCS: 93005 ×2; 99284; 96374; 96375; 36415; 82550; 85025; 80053; 84484; 82803; 83880; 71045; 93010 ×2; J1940; J3490